=== PATIENT | female | born 1955 | race African-American/Black ===

== ENCOUNTER 2023-01-19 08:21 | Emergency (ER) | payer MEDICARE ==
[~2023-01-19] VITALS: Ht 162.6 cm; Wt 63.5 kg
[2023-01-19] MEDS ORDERED: DEXAMETHASONE SOD PHOS 10 MG/1 ML VIAL IV STA (08:29)
[2023-01-19] MEDS ORDERED: ALBUTEROL/IPRATROPIUM 3 ML NEB NEB ONE (08:30)
[2023-01-19 08:46] LABS: BASOPHILS % 0.2 % (0.0-1.0); EOSINOPHILS # (AUTO) 0.1 (0.0-0.4); HEMATOCRIT 41.8 % (34.2-44.1); HEMOGLOBIN 14.1 g/dL (12.0-16.0); LYMPHOCYTES # (AUTO) 5.6 (1.0-3.2); LYMPHOCYTES % 51.8 % (18.0-39.1); MEAN CORPUSCULAR HEMOGLOBIN 30.9 pg (28-32); MEAN CORPUSCULAR HGB CONC 33.7 g/dL (31-35); MEAN CORPUSCULAR VOLUME 91.7 fL (81-99); MONOCYTES # (AUTO) 0.9 (0.2-0.8); MONOCYTES % 8.5 % (4.4-11.3); NEUTROPHILS # (AUTO) 4.1 (2.1-6.9); NEUTROPHILS % 38.2 % (38.7-80.0); PLATELET COUNT 208 x10e3/uL (140-360); RED BLOOD COUNT 4.56 x10e6/uL (3.6-5.1); RED CELL DISTRIBUTION WIDTH 14.1 % (11.7-14.4)
[2023-01-19 09:17] LABS: ALBUMIN 3.5 g/dL (3.5-5.0); ALBUMIN/GLOBULIN RATIO 1.3 (0.8-2.0); ANION GAP 15.5 mmol/L (8-16); CALCIUM 9.2 mg/dL (8.4-10.2); POTASSIUM 3.5 mmol/L (3.5-5.1)
[2023-01-19] MEDS ORDERED: MUCINEX DM ER1 EACH PO (09:48)
[2023-01-19 11:00] LABS: PLATELET ESTIMATE ADEQUATE
[2023-01-19 11:01] LABS: PLATELET MORPHOLOGY COMMENT NORMAL
[2023-01-19 11:03] LABS: LYMPHOCYTES % (MANUAL) 42 % (19-48); MONOCYTES % (MANUAL) 7 % (3.4-9.0); NEUTROPHILS % (MANUAL) 47 % (40-74)
== END 2023-01-19 10:24 | disposition home or self-care (01) ==
LOC: ER 08:25
DX: R06.02 Shortness of breath (principal); J45.901 Unspecified asthma with (acute) exacerbation; J06.9 Acute upper respiratory infection, unspecified; R05.9 Cough, unspecified; Z20.822 Contact with and (suspected) exposure to COVID-19
CPT/HCPCS: 36415; 71045; 80053; 83880; 85025; 93005; 99284; J1100; U0002

== ENCOUNTER 2023-10-24 14:49 | Inpatient (IN) | payer MEDICARE ==
[~2023-10-24] VITALS: Ht 162.6 cm; Wt 69.9 kg
[~2023-10-24 14:49] MED LIST: MUCINEX DM ER1 EACH PO
[2023-10-24] MEDS ORDERED: METHYLPREDNISOLONE SOD SUCC 125 MG/2ML VIAL IV ONE (15:00)
[2023-10-24] MEDS ORDERED: ALBUTEROL/IPRATROPIUM 3 ML NEB NEB ONE (15:00)
[2023-10-24 15:08] VITALS: PULSE 102; RESP 18; O2SAT 94
[2023-10-24 15:10] LABS: BASOPHILS % 0.3 % (0.0-1.0); EOSINOPHILS # (AUTO) 0.2 (0.0-0.4); EOSINOPHILS % 2.3 % (0.0-6.0); HEMATOCRIT 46.5 % (34.2-44.1); HEMOGLOBIN 15.4 g/dL (12.0-16.0); LYMPHOCYTES # (AUTO) 1.3 (1.0-3.2); LYMPHOCYTES % 19.2 % (18.0-39.1); MEAN CORPUSCULAR HGB CONC 33.1 g/dL (31-35); MEAN CORPUSCULAR VOLUME 93.8 fL (81-99); MONOCYTES # (AUTO) 0.1 (0.2-0.8); MONOCYTES % 1.4 % (4.4-11.3); NEUTROPHILS # (AUTO) 5.3 (2.1-6.9); NEUTROPHILS % 76.5 % (38.7-80.0); PLATELET COUNT 176 x10e3/uL (140-360); RED BLOOD COUNT 4.96 x10e6/uL (3.6-5.1); RED CELL DISTRIBUTION WIDTH 13.4 % (11.7-14.4); WHITE BLOOD COUNT 6.92 x10e3/uL (4.8-10.8)
[2023-10-24 15:27] LABS: ALBUMIN 4.2 g/dL (3.5-5.0); ALBUMIN/GLOBULIN RATIO 1.1 (0.8-2.0); ANION GAP 15.7 mmol/L (8-16); BILIRUBIN,TOTAL 0.4 mg/dL (0.2-1.2); CALCIUM 9.9 mg/dL (8.4-10.2); CREATININE, SERUM 0.92 mg/dL (0.57-1.11); POTASSIUM 3.7 mmol/L (3.5-5.1); TOTAL PROTEIN 8.1 g/dL (6.5-8.1)
[2023-10-24] MEDS ORDERED: MAGNESIUM SULFATE 2GM/50ML 50 ML IV ONE (15:45)
[2023-10-24] MEDS ORDERED: ONDANSETRON HCL INJ 2MG/ML 2ML 2 MG/ML VIAL IV PRN (17:45)
[2023-10-24] MEDS ORDERED: SODIUM CHLORIDE FLUSH 10 ML SYR INJ PRN (17:45)
[2023-10-24 18:59] VITALS: PULSE 102; RESP 20; O2SAT 97
[2023-10-24] MEDS: ALBUTEROL/IPRATROPIUM 3 ML NEB NEB SCH ×2 (18:59→23:13)
[2023-10-24 20:00] VITALS: BP 161/92; PULSE 78; RESP 18; TEMP 97.1; O2SAT 97
[2023-10-24] MEDS ORDERED: HYDRALAZINE HCL 25 MG TAB PO PRN (20:15)
[2023-10-24 21:00] VITALS: BP 161/92; PULSE 78; RESP 18; TEMP 97.1; O2SAT 97
[2023-10-24] MEDS ORDERED: MONTELUKAST SOD10 MG PO (22:22)
[2023-10-24] MEDS ORDERED: NEURONTIN400 MG PO (22:22)
[2023-10-24] MEDS ORDERED: MIRALAX17 GM PO (22:22)
[2023-10-24] MEDS ORDERED: FLONASE ALLERG9.9 ML INH (22:22)
[2023-10-24] MEDS ORDERED: PROVENTIL HFA6.7 GM INH (22:22)
[2023-10-24] MEDS ORDERED: BACLOFEN10 MG PO (22:22)
[2023-10-24] MEDS ORDERED: VITAMIN D250 MC1 PO (22:22)
[2023-10-24] MEDS ORDERED: IPRAT-ALBUT 0.5-3 ML NEB (22:22)
[2023-10-24] MEDS ORDERED: LORATADINE10 MG PO (22:22)
[2023-10-24] MEDS ORDERED: AMLODIPINE BESY10 MG PO (22:22)
[2023-10-24] MEDS ORDERED: ATORVASTATIN CA20 MG PO (22:22)
[2023-10-24] MEDS: DOXYCYCLINE HYCLATE TABLET 100 MG TAB PO SCH (22:26)
[2023-10-24] MEDS: METHYLPREDNISOLONE SOD SUCC 40 MG/ML VIAL 1ML IV SCH (22:27)
[2023-10-24] MEDS: METOPROLOL TARTRATE 25 MG TAB PO SCH (22:27)
[2023-10-24] MEDS ORDERED: SODIUM CHLORIDE 0.9% 100 ML ONE (22:32)
[2023-10-24 22:38] VITALS: BP 124/79; PULSE 70; RESP 18; TEMP 97.1; O2SAT 99
[2023-10-24] MEDS ORDERED: SYMBICORT 16010.2 GM INH (22:57)
[2023-10-24 23:13] VITALS: PULSE 106; RESP 20; O2SAT 97
[2023-10-25] VITALS (15 sets, daily range): BP systolic 143–168; BP diastolic 77–99; PULSE 70–106; RESP 16–23; TEMP 97.6–99; O2SAT 93–100
[2023-10-25] MEDS: ALBUTEROL/IPRATROPIUM 3 ML NEB NEB SCH ×6 (03:10→23:07)
[2023-10-25] MEDS: ACETAMINOPHEN 325 MG TAB PO PRN ×2 (03:34→19:15)
[2023-10-25 05:39] LABS: BASOPHILS % 0.2 % (0.0-1.0); HEMATOCRIT 41.2 % (34.2-44.1); LYMPHOCYTES # (AUTO) 1.3 (1.0-3.2); LYMPHOCYTES % 22.6 % (18.0-39.1); MEAN CORPUSCULAR HEMOGLOBIN 30.6 pg (28-32); MEAN CORPUSCULAR VOLUME 90.2 fL (81-99); MONOCYTES # (AUTO) 0.1 (0.2-0.8); MONOCYTES % 1.4 % (4.4-11.3); NEUTROPHILS # (AUTO) 4.5 (2.1-6.9); NEUTROPHILS % 75.5 % (38.7-80.0); PLATELET COUNT 180 x10e3/uL (140-360); RED BLOOD COUNT 4.57 x10e6/uL (3.6-5.1); RED CELL DISTRIBUTION WIDTH 13.4 % (11.7-14.4); WHITE BLOOD COUNT 5.92 x10e3/uL (4.8-10.8)
[2023-10-25] MEDS: METHYLPREDNISOLONE SOD SUCC 40 MG/ML VIAL 1ML IV SCH ×2 (05:44→21:24)
[2023-10-25 06:02] LABS: CALCIUM 9.7 mg/dL (8.4-10.2); CREATININE, SERUM 0.8 mg/dL (0.57-1.11)
[2023-10-25] MEDS: DOXYCYCLINE HYCLATE TABLET 100 MG TAB PO SCH ×2 (09:21→21:22)
[2023-10-25] MEDS: METOPROLOL TARTRATE 25 MG TAB PO SCH ×2 (09:21→21:22)
[2023-10-25] MEDS ORDERED: FLUTICASONE PROPIONATE NASAL SPRAY NS SCH (12:00)
[2023-10-25] MEDS ORDERED: FLUTICASONE PROPIONATE NASAL SPRAY NS PRN (14:15)
[2023-10-25] MEDS: BUDESONIDE/FORMOTEROL 160/4.5MCG INHALER INH SCH (19:35)
[2023-10-25] MEDS: TRAMADOL HCL 50 MG TAB PO PRN (21:23)
[2023-10-26] VITALS (14 sets, daily range): BP systolic 137–158; BP diastolic 80–93; PULSE 71–84; RESP 16–20; TEMP 97.6–98.2; O2SAT 95–100
[2023-10-26] MEDS: ALBUTEROL/IPRATROPIUM 3 ML NEB NEB SCH ×6 (03:29→23:18)
[2023-10-26] MEDS: BUDESONIDE/FORMOTEROL 160/4.5MCG INHALER INH SCH ×2 (08:05→18:53)
[2023-10-26] MEDS: METHYLPREDNISOLONE SOD SUCC 40 MG/ML VIAL 1ML IV SCH ×2 (09:19→21:19)
[2023-10-26] MEDS: METOPROLOL TARTRATE 25 MG TAB PO SCH ×2 (09:20→21:21)
[2023-10-26] MEDS: DOXYCYCLINE HYCLATE TABLET 100 MG TAB PO SCH ×2 (09:20→21:20)
[2023-10-26] MEDS: TRAMADOL HCL 50 MG TAB PO PRN ×3 (09:21→21:20)
[2023-10-27] VITALS (12 sets, daily range): BP systolic 144–155; BP diastolic 80–97; PULSE 69–88; RESP 16–20; TEMP 97.9–98.3; O2SAT 94–100
[2023-10-27] MEDS: ALBUTEROL/IPRATROPIUM 3 ML NEB NEB SCH ×6 (03:27→23:16)
[2023-10-27] MEDS: BUDESONIDE/FORMOTEROL 160/4.5MCG INHALER INH SCH ×2 (08:06→19:00)
[2023-10-27] MEDS: METHYLPREDNISOLONE SOD SUCC 40 MG/ML VIAL 1ML IV SCH (08:58)
[2023-10-27] MEDS: METOPROLOL TARTRATE 25 MG TAB PO SCH ×2 (08:59→21:07)
[2023-10-27] MEDS: DOXYCYCLINE HYCLATE TABLET 100 MG TAB PO SCH ×2 (08:59→21:05)
[2023-10-27] MEDS ORDERED: IOPAMIDOL 370 MG/ML 100 ML INFUS..BTL INJ ONE (09:24)
[2023-10-27] MEDS: TRAMADOL HCL 50 MG TAB PO PRN ×2 (16:38→21:05)
[2023-10-28] VITALS: BP 147/83; PULSE 72; RESP 20; TEMP 96.7; O2SAT 98
[2023-10-28 03:41] VITALS: PULSE 73; RESP 18; O2SAT 97
[2023-10-28] MEDS: ALBUTEROL/IPRATROPIUM 3 ML NEB NEB SCH ×2 (03:41→08:53)
[2023-10-28 04:00] VITALS: BP 147/90; PULSE 81; RESP 18; TEMP 97.7; O2SAT 96
[2023-10-28 05:36] LABS: HEMATOCRIT 38.8 % (34.2-44.1); LYMPHOCYTES # (AUTO) 4.6 (1.0-3.2); LYMPHOCYTES % 44.1 % (18.0-39.1); MEAN CORPUSCULAR HEMOGLOBIN 30.2 pg (28-32); MEAN CORPUSCULAR HGB CONC 33.5 g/dL (31-35); MEAN CORPUSCULAR VOLUME 90.2 fL (81-99); MONOCYTES # (AUTO) 0.7 (0.2-0.8); MONOCYTES % 6.9 % (4.4-11.3); NEUTROPHILS # (AUTO) 5.1 (2.1-6.9); NEUTROPHILS % 48.7 % (38.7-80.0); PLATELET COUNT 180 x10e3/uL (140-360); RED CELL DISTRIBUTION WIDTH 13.4 % (11.7-14.4); WHITE BLOOD COUNT 10.51 x10e3/uL (4.8-10.8)
[2023-10-28 06:32] LABS: ANION GAP 10.3 mmol/L (8-16); CALCIUM 8.8 mg/dL (8.4-10.2); CREATININE, SERUM 0.89 mg/dL (0.57-1.11)
[2023-10-28 06:34] LABS: POTASSIUM 3.3 mmol/L (3.5-5.1)
[2023-10-28 08:00] VITALS: BP 139/77; PULSE 70; RESP 20; TEMP 98.4; O2SAT 98
[2023-10-28] MEDS: TRAMADOL HCL 50 MG TAB PO PRN (08:52)
[2023-10-28 08:53] VITALS: PULSE 82; RESP 18; O2SAT 95
[2023-10-28] MEDS: DOXYCYCLINE HYCLATE TABLET 100 MG TAB PO SCH (08:53)
[2023-10-28 08:54] VITALS: BP 147/90; PULSE 88
[2023-10-28] MEDS: METOPROLOL TARTRATE 25 MG TAB PO SCH (08:54)
[2023-10-28] MEDS: BUDESONIDE/FORMOTEROL 160/4.5MCG INHALER INH SCH (08:56)
[2023-10-28] MEDS ORDERED: METHYLPREDNISOLONE SOD SUCC 40 MG/ML VIAL 1ML IV SCH (09:00)
== END 2023-10-28 10:15 | disposition home or self-care (01) | DRG 191 ==
LOC: ER 14:57 → ERHOLD 17:34 → OBSVTOIN 20:15 → MED/SURG 20:25
PROVIDERS: ADMIT Internal Medicine; ATTEND Internal Medicine
DX: J44.1 Chronic obstructive pulmonary disease with (acute) exacerbation (principal); J45.901 Unspecified asthma with (acute) exacerbation; I10 Essential (primary) hypertension; E78.5 Hyperlipidemia, unspecified; R09.02 Hypoxemia; M19.90 Unspecified osteoarthritis, unspecified site; R06.89 Other abnormalities of breathing; D25.9 Leiomyoma of uterus, unspecified; Z87.01 Personal history of pneumonia (recurrent); Z20.822 Contact with and (suspected) exposure to COVID-19
CPT/HCPCS: 36415; 71045; 71250; 74177; 80048; 80053; 85025; 87400; 93005; 93971; 94664; 94799; 99284; J0696; J2920; J2930; J3475; J7050; Q9967; U0002